=== PATIENT | male | born 1950 | race Caucasian/White ===

== ENCOUNTER 2019-09-12 09:33 | Day surgery (SDC) | payer MEDICARE, BC ==
[~2019-09-12] VITALS: Ht 182.9 cm; Wt 93.1 kg
[~2019-09-12 09:33] MED LIST: Apple Cider Vi300 MG PO; CEPH500 PO; CETI5; IBUP400; LISI5; MULTIVITAMINS1 EAC3 PO; NAPR220; OMEP20ER; OMEP20ER PO; TAMS.4ER PO
== END 2019-09-12 11:33 | disposition home or self-care (01) ==
LOC: ORSCSDS 09:33
PROVIDERS: Internal Medicine Gastroenterology
PROC: 0DBM8ZX Excision of Descending Colon, Via Natural or Artificial Opening Endoscopic, Diagnostic (ICD-10-PCS; principal; 2019-09-12 09:00)
DX: Z12.11 Encounter for screening for malignant neoplasm of colon (principal); Z11.59 Encounter for screening for other viral diseases; K63.5 Polyp of colon; K57.30 Diverticulosis of large intestine without perforation or abscess without bleeding; K64.8 Other hemorrhoids; Z86.010 Personal history of colon polyps; Z87.891 Personal history of nicotine dependence
CPT/HCPCS: 88305; J0461; J2405; J2704; J7120; U0002

== ENCOUNTER 2023-12-11 09:11 | Day surgery (SDC) | payer MEDICARE, BC ==
[2023-12-11] VITALS (11 sets, daily range): BP systolic 114–134; BP diastolic 58–74
[~2023-12-11 09:11] MED LIST changes: +Dexamethasone Sod Phos 10 MG/ML 1ML VIAL ONE; +FentaNYL Citrate 50 MCG/ML 5 ML Injection ONE; +LOSA25 PO; +LOSARTAN POTASS25 M2 PO; +Ondansetron HCl 2 MG / ML 2ML Vial ONE; +Rocuronium Bromide 10 MG/ML 5ML Injection IV ONE; +Sugammadex Sodium 200 MG/2ML SDV (100 MG/ML) ONE; +propofoL 20 ML IV ONE
[2023-12-11] MEDS ORDERED: NS 500 ML IV SCH (09:35)
[2023-12-11] MEDS ORDERED: CeFAZolin Sodium 2,000 MG in NS 100 ML IV SCH (09:40)
[2023-12-11] MEDS ORDERED: Bupivacaine 0.5% HCl 5 MG/ML 30MLVIAL ONE (10:09)
[2023-12-11] MEDS ORDERED: Lactated Ringer's 1,000 ML IV ONE (10:28)
[2023-12-11] MEDS ORDERED: Lactated Ringer's 1,000 ML IV SCH (10:30)
[2023-12-11] MEDS ORDERED: Phenylephrine HCl 100 MCG/ML-NS 10MLSYR (1MG/10ML) ONE (10:50)
[2023-12-11] MEDS ORDERED: Atropine Sulfate 0.4 MG/1 ML Vial ONE (10:57)
--- NOTE | 2023-12-11 11:18 | NUR ---
12/11/23 1118 Lilliana Hanna RED IRRITATED SKIN NOTED ON RIGHT SIDE OF PATIENT'S GROIN PRIOR TO ENTRY TO OR. AWARE.
[2023-12-11] MEDS ORDERED: Ketorolac Tromethamine 30mg Vial ONE (12:29)
[2023-12-11] MEDS ORDERED: FentaNYL Citrate 50 MCG/ML 2 ML Injection ONE (12:29)
[2023-12-11] MEDS ORDERED: HYDROcodone 5-APAP 325 TAB PO PRN (12:45)
--- NOTE | 2023-12-11 14:39 | NUR ---
1320 ASSUMED CARE OF PT, ABDOMINAL INCISIONS X3 INTACT WITH DERMABOND. VSS PAIN 5/10. PO FLUIDS AND PUDDING GIVEN. AT BEDSIDE. 1400 AMBULATE TO BR STEADY ON FEET. VOIDED. 1420 DC INSTRUCTS GIVEN PT AND VERBALIZED UNDERSTANDING 1430 DC HOME, TO CAR VIA W/C
== END 2023-12-11 14:30 | disposition home or self-care (01) ==
LOC: ORSCMMR 09:11 → ORD 10:30 → ORSCMMR 10:30
PROVIDERS: Surgery
PROC: 0YU54JZ Supplement Right Inguinal Region with Synthetic Substitute, Percutaneous Endoscopic Approach (ICD-10-PCS; principal; 2023-12-11 10:30)
PROC: 8E0W4CZ Robotic Assisted Procedure of Trunk Region, Percutaneous Endoscopic Approach (ICD-10-PCS; principal; 2023-12-11 10:30)
DX: K40.90 Unilateral inguinal hernia, without obstruction or gangrene, not specified as recurrent (principal); I10 Essential (primary) hypertension; E78.5 Hyperlipidemia, unspecified; Z87.891 Personal history of nicotine dependence; N40.0 Benign prostatic hyperplasia without lower urinary tract symptoms; Z79.899 Other long term (current) drug therapy
CPT/HCPCS: A9270; C1781; J0461; J0690; J1100; J1885; J2371; J2405; J2704; J3010; J7040; J7120